=== PATIENT | female | born 1950 | race Caucasian/White ===

== ENCOUNTER → 2017-07-02 | Outpatient (CLI) | payer MEDICARE, OTHER | END | disposition home or self-care (01) | LOC: PCVCCLINIC 11:04 | PROVIDERS: ATTEND Internal Medicine Cardiovascular Disease | DX: I48.92 Unspecified atrial flutter (principal); I35.1 Nonrheumatic aortic (valve) insufficiency; E78.00 Pure hypercholesterolemia, unspecified; Z86.711 Personal history of pulmonary embolism; Z82.49 Family history of ischemic heart disease and other diseases of the circulatory system; Z79.82 Long term (current) use of aspirin | CPT/HCPCS: 80061; 93005; G0463 ==

== ENCOUNTER → 2017-07-04 | Outpatient (CLI) | payer MEDICARE, OTHER ==
--- NOTE | 2017-07-04 17:02 | PCVCIMAG ---
APPROVED REPORT Exam: Stress Echocardiogram Indication: Chest pressure, dyspnea, SVT, Aortic Regurgitation Patient Location: Echo lab Stress Nurse: Jennifer Ordoñez RN Status: routine Ht: 5 ft 6 in HR: 66 bpm BP: 122/76 mmHg Rhythm: NSR Procedure The patient underwent an Exercise Stress Test using the Andres Protocol. Blood pressure, heart rate, and EKG were monitored. An Echocardiogram was performed by vehicle glass technician in four stages in quad fashion. At peak stress, four selected images were obtained and placed side by side with resting images for comparison. Stress Test Details Stress Test: Exercise stress testing was performed using a Andres protocol. HR Resting HR: 66 bpmMax Heart Rate (APMHR): 151 bpm Max HR Achieved: 169 bpmTarget HR (85% APMHR): 128 bpm % of APMHR: 111 Recovery HR: 77 bpm HR response to stress: Normal HR response to stress BP Resting BP: 122/76 mmHg Max BP: 152/80 mmHg Recovery BP: 108/88 mmHg ECG Resting ECG: Sinus Rhythm Stress ECG: Sinus Rhythm with atrial tachycardia ST Change: Normal Arrhythmia: atrial tachycardia Recovery ECG: Sinus Rhythm Recovery ST Change: Normal Recovery Arrhythmia: None Clinical Reason for Termination: Maximal effort Stress Symptoms: Dyspnea Exercise duration: 9 min 54 sec Highest Stage Achieved: Stage 4: 4.2 mph at 16% grade. Exercise capacity: 12.9 METs Overall Exercise Capacity for Age: Good Pre-Stress Echo The resting Echocardiogram showed normal left ventricular contractility with an estimated Ejection Fraction of about >55%. Normal wall motion in all segments on baseline images. Post-Stress Echo The stress Echocardiogram showed left ventricular contractility with an estimated Ejection Fraction of about 65%. Normal augmentation of wall motion in all segments on post stress images. Clinical No clinical or ECG evidence for ischemia. Conclusion Clinical Response: Non-ischemic Exercise Capacity: Average Stress ECG Response: Non-ischemic Stress Echo Images: Non-ischemic The left ventricle is normal in size and wall thickness in both the rest and stress images. Aortic sinus of valsalva dilated to 4.4 cm and the ascending aorta mildly dilated to 4.1 cm with mild aortic regurgitation present. Other Information Study Quality: Adequate <Conclusion> The left ventricle is normal in size and wall thickness in both the rest and stress images. Aortic sinus of valsalva dilated to 4.4 cm and the ascending aorta mildly dilated to 4.1 cm with mild aortic regurgitation present.
== END | disposition home or self-care (01) ==
LOC: PCVCIMAG 09:55
PROVIDERS: ATTEND Internal Medicine Cardiovascular Disease
DX: I35.1 Nonrheumatic aortic (valve) insufficiency (principal); I47.1 Supraventricular tachycardia; I48.92 Unspecified atrial flutter; Z82.49 Family history of ischemic heart disease and other diseases of the circulatory system
CPT/HCPCS: 93325; 93351

== ENCOUNTER → 2018-03-24 | Outpatient (CLI) | payer MEDICARE, OTHER | END | disposition home or self-care (01) | LOC: PCVCCLINIC 12:38 | DX: I26.99 Other pulmonary embolism without acute cor pulmonale (principal); I48.92 Unspecified atrial flutter; E78.00 Pure hypercholesterolemia, unspecified; I35.1 Nonrheumatic aortic (valve) insufficiency; I47.1 Supraventricular tachycardia; Z79.82 Long term (current) use of aspirin | CPT/HCPCS: 80061; 93005; G0463 ==

== ENCOUNTER → 2019-01-20 | Outpatient (CLI) | payer MEDICARE, OTHER | END | disposition home or self-care (01) | LOC: PCVCIMAG 11:30 | PROVIDERS: ATTEND Internal Medicine Cardiovascular Disease | DX: I65.23 Occlusion and stenosis of bilateral carotid arteries (principal); I48.92 Unspecified atrial flutter; I26.99 Other pulmonary embolism without acute cor pulmonale; I35.1 Nonrheumatic aortic (valve) insufficiency; I47.1 Supraventricular tachycardia; Z79.82 Long term (current) use of aspirin | CPT/HCPCS: 36415; 80061; 93005; 93880; G0463 ==

== ENCOUNTER → 2019-01-20 | Outpatient (CLI) | payer MEDICARE, OTHER | END | disposition home or self-care (01) | LOC: PCVCCLINIC 11:29 | PROVIDERS: ATTEND Internal Medicine Cardiovascular Disease | DX: I48.92 Unspecified atrial flutter (principal); I26.99 Other pulmonary embolism without acute cor pulmonale; E78.00 Pure hypercholesterolemia, unspecified; I35.1 Nonrheumatic aortic (valve) insufficiency; I47.1 Supraventricular tachycardia; Z72.89 Other problems related to lifestyle; Z88.8 Allergy status to other drugs, medicaments and biological substances | CPT/HCPCS: 36415; 80061; 93005; G0463 ==